=== PATIENT | male | born 1965 | race Caucasian/White ===

== ENCOUNTER 2018-04-27 16:44 | Emergency (ER) | payer MEDICAID ==
[2018-04-27] MEDS: KETOROLAC 60 MG INJ IM (20:29)
[2018-04-27 21:05] LABS: URINE PH (Dip) POC 8.5 (5.0-8.5)
[2018-04-27 21:05] LABS: URINE BLOOD (Dip) POC Negative (NEGATIVE); URINE GLUCOSE (Dip) POC Negative (NEGATIVE); URINE KETONES (Dip) POC Negative (NEGATIVE); URINE LEUKOCYTE EST (Dip) POC Negative (NEGATIVE); URINE NITRITE (Dip) POC Negative (NEGATIVE); URINE TOTAL PROTEIN POC Negative (NEGATIVE)
== END 2018-04-27 21:38 | disposition home or self-care (01) ==
LOC: FTE 16:44
DX: S39.94XA Unspecified injury of external genitals, initial encounter (principal); N43.3 Hydrocele, unspecified; X58.XXXA Exposure to other specified factors, initial encounter; Y92.9 Unspecified place or not applicable
CPT/HCPCS: 76870; 81003; 96372; 99285-25

== ENCOUNTER 2018-05-21 15:14 | Emergency (ER) | payer MEDICAID ==
[2018-05-21 17:02] LABS: URINE BLOOD (Dip) POC Trace-intact (NEGATIVE); URINE GLUCOSE (Dip) POC Negative (NEGATIVE); URINE KETONES (Dip) POC Negative (NEGATIVE); URINE LEUKOCYTE EST (Dip) POC Negative (NEGATIVE); URINE NITRITE (Dip) POC Negative (NEGATIVE); URINE TOTAL PROTEIN POC Negative (NEGATIVE)
[2018-05-21] MEDS: KETOROLAC 60 MG INJ IM (17:02)
== END 2018-05-21 19:52 | disposition left against medical advice (07) ==
LOC: FTE 15:14
DX: N50.811 Right testicular pain (principal); N52.9 Male erectile dysfunction, unspecified
CPT/HCPCS: 76870; 81003; 96372; 99285-25